=== PATIENT | male | born 1975 | race Caucasian/White ===

== ENCOUNTER 2021-12-31 03:40 | Emergency (ER) | payer SELFPAY ==
[2021-12-31] MEDS ORDERED: predniSONE 20 MG Tab PO ONE (05:06)
[2021-12-31] MEDS ORDERED: Cyclobenzaprine 10 MG Tab PO ONE (05:06)
[2021-12-31] MEDS ORDERED: Acetaminophen 325 MG Tab PO ONE (05:06)
[2021-12-31 05:27] LABS: AMPHETAMINES,URINE NEGATIVE (NEGATIVE); BARBITURATES,URINE NEGATIVE (NEGATIVE); BENZODIAZEPINE,URINE NEGATIVE (NEGATIVE); MDMA (ECSTASY), URINE NEGATIVE (NEGATIVE); METHADONE,URINE NEGATIVE (NEGATIVE); METHAMPHETAMINES,URINE NEGATIVE (NEGATIVE); OPIATES,URINE NEGATIVE (NEGATIVE); OXYCODONE,URINE NEGATIVE (NEGATIVE); PHENCYCLIDINE,URINE NEGATIVE (NEGATIVE); TCA,URINE NEGATIVE (NEGATIVE)
[2021-12-31 05:34] LABS: ANION GAP 12.6 mEq/L (7-13)
== END 2021-12-31 06:00 | disposition home or self-care (01) ==
LOC: DL.ED 03:40
DX: M62.830 Muscle spasm of back (principal); Z88.8 Allergy status to other drugs, medicaments and biological substances
CPT/HCPCS: 36415; 80053; 80305-QW; 81001; 85025; 99283; A9270-GY; J7512

== ENCOUNTER 2022-02-26 08:04 | Emergency (ER) | payer SELFPAY ==
[2022-02-26] MEDS ORDERED: cefTRIAXone 1 GM, Lidocaine 1% 2.1 ML IM ONE ×2 (08:13)
[2022-02-26] MEDS ORDERED: diphenhydrAMINE 25 MG Tab PO ONE (08:14)
[2022-02-26] MEDS ORDERED: methylPREDNISolone Sodium Succinate 125 MG/2 ML SDV IM ONE (08:14)
== END 2022-02-26 08:30 | disposition home or self-care (01) ==
LOC: DL.ED 08:04
DX: T63.481A Toxic effect of venom of other arthropod, accidental (unintentional), initial encounter (principal); L08.9 Local infection of the skin and subcutaneous tissue, unspecified; Z88.8 Allergy status to other drugs, medicaments and biological substances
CPT/HCPCS: 96372; 99281; A9270; J0696; J2930

== ENCOUNTER 2022-10-31 07:29 | Day surgery (SDC) | payer MEDICAID ==
[~2022-10-31 07:29] MED LIST: Midazolam 1 MG/ML 2 ML SDV ONE; fentaNYL 100 MCG/2 ML SDV ONE
[2022-10-31] MEDS ORDERED: Dextrose 5%-0.45% NaCl 1,000 ML IV SCH (08:00)
[2022-10-31] MEDS ORDERED: fentaNYL 100 MCG/2 ML SDV IV ONE ×2 (08:20)
[2022-10-31] MEDS ORDERED: Midazolam 1 MG/ML 2 ML SDV IV ONE ×2 (08:21)
== END 2022-10-31 09:48 | disposition home or self-care (01) ==
LOC: DL.ENDO 07:29
PROVIDERS: ATTEND Internal Medicine Gastroenterology
DX: K25.7 Chronic gastric ulcer without hemorrhage or perforation (principal); F10.20 Alcohol dependence, uncomplicated; I85.00 Esophageal varices without bleeding; K70.30 Alcoholic cirrhosis of liver without ascites; E66.09 Other obesity due to excess calories; F41.1 Generalized anxiety disorder; K76.6 Portal hypertension; Z68.32 Body mass index [BMI] 32.0-32.9, adult; Z79.899 Other long term (current) drug therapy
CPT/HCPCS: 43239; 87077; J2250; J3010; J7042